=== PATIENT | female | born 1995 | race Caucasian/White ===

== ENCOUNTER 2021-02-05 12:38 | Inpatient (IN) | payer MEDICAID, OTHER ==
[~2021-02-05] VITALS: Ht 162.6 cm; Wt 90.7 kg
[2021-02-05] MEDS ORDERED: ALBUTEROL (12:43)
[2021-02-05] MEDS ORDERED: HYDROCODONE/ACETAMINOPHEN 5/325MG TABLET PO ONE (13:15)
[2021-02-05] MEDS ORDERED: MORPHINE SULFATE 4 MG/ML CPJ (NOT FOR IM USE) IV ONE (17:45)
[2021-02-05] MEDS ORDERED: ONDANSETRON HCL 4MG/2ML INJ IV ONE (17:45)
[2021-02-05 18:34] LABS: BASOPHILS % 0.3 % (0.0-2.0); EOSINOPHILS % 0.4 % (0.0-5.0); HEMATOCRIT. 35.4 % (36.0-48.0); HEMOGLOBIN. 12.3 g/dL (12.0-16.0); LYMPHOCYTES % 25.2 % (20.0-50.0); MEAN CORPUSCULAR HEMOGLOBIN 32.5 pg (28.0-32.0); MEAN CORPUSCULAR VOLUME 93.6 fL (81.0-99.0); MONOCYTES % 8.7 % (2.0-8.0); NEUTROPHILS % 65.4 % (40.0-76.0); PLATELET 306 x1000/uL (130-400); RED BLOOD CELL COUNT 3.79 mill/uL (4.2-5.4); RED CELL DISTRIBUTION WIDTH 16.4 % (11.6-14.6)
[2021-02-05 18:37] LABS: CHLORIDE 108 mEq/L (98-107)
[2021-02-05 18:41] LABS: HCG SCREEN NEGATIVE
[2021-02-05] MEDS ORDERED: ACETAMINOPHEN 325MG TABLET PO ONE (20:00)
[2021-02-05] MEDS ORDERED: NALOXONE HCL 0.4MG/ML VIAL IV PRN (23:30)
[2021-02-05] MEDS: MORPHINE SULFATE 2 MG/ML CPJ (NOT FOR IM USE) IV PRN (23:52)
[2021-02-06] MEDS: MORPHINE SULFATE 2 MG/ML CPJ (NOT FOR IM USE) IV PRN ×3 (04:11→19:58)
[2021-02-06 09:00] VITALS: BP 131/84
[2021-02-06] MEDS ORDERED: HYDR-4001 PO (09:15)
[2021-02-06] MEDS ORDERED: P20 MT (09:15)
[2021-02-06 09:30] VITALS: BP 131/84
[2021-02-06] MEDS ORDERED: ACETAMINOPHEN 325MG TABLET PO PRN (09:30)
[2021-02-06] MEDS ORDERED: ONDANSETRON HCL 4MG/2ML INJ IV PRN (09:30)
[2021-02-06] MEDS: HYDROCODONE/ACETAMINOPHEN 10/325MG TABLET PO PRN (10:37)
[2021-02-06 12:00] VITALS: BP 116/66
[2021-02-06 16:00] VITALS: BP 122/76
[2021-02-06] MEDS ORDERED: *PATIENT'S OWN MEDICATION STORAGE XX SCH (17:00)
[2021-02-06 20:00] VITALS: BP 151/50
[2021-02-07] VITALS: BP 100/60
[2021-02-07] MEDS: MORPHINE SULFATE 2 MG/ML CPJ (NOT FOR IM USE) IV PRN ×4 (01:57→20:02)
[2021-02-07 04:00] VITALS: BP 108/63
[2021-02-07] MEDS: HYDROCODONE/ACETAMINOPHEN 10/325MG TABLET PO PRN ×2 (04:35→12:56)
[2021-02-07 08:10] VITALS: BP 130/85
[2021-02-07 12:15] VITALS: BP 139/116
[2021-02-07 16:15] VITALS: BP 120/64
[2021-02-07 20:00] VITALS: BP 125/53
[2021-02-08] VITALS: BP 116/50
[2021-02-08] MEDS: MORPHINE SULFATE 2 MG/ML CPJ (NOT FOR IM USE) IV PRN ×5 (01:30→20:21)
[2021-02-08 04:00] VITALS: BP 102/49
[2021-02-08 08:00] VITALS: BP 102/49
[2021-02-08 12:00] VITALS: BP 127/74
[2021-02-08] MEDS: HYDROCODONE/ACETAMINOPHEN 10/325MG TABLET PO PRN ×2 (13:43→19:20)
[2021-02-08 16:00] VITALS: BP 117/67
[2021-02-08 20:45] VITALS: BP 122/68
[2021-02-09] VITALS: BP 105/65
[2021-02-09] MEDS: MORPHINE SULFATE 2 MG/ML CPJ (NOT FOR IM USE) IV PRN ×2 (00:43→08:21)
[2021-02-09 04:00] VITALS: BP 109/54
[2021-02-09 08:12] VITALS: BP 106/39
[2021-02-09 10:47] VITALS: BP 125/78
[2021-02-09 12:02] VITALS: BP 113/68
== END 2021-02-09 13:43 | disposition home or self-care (01) | DRG 351 ==
LOC: ER 12:38 → MICUSO 17:23 → 6WST 02-06 07:25
PROVIDERS: ADMIT Internal Medicine; ATTEND Internal Medicine
DX: S93.401A Sprain of unspecified ligament of right ankle, initial encounter (principal); G61.0 Guillain-Barre syndrome; E87.8 Other disorders of electrolyte and fluid balance, not elsewhere classified; E66.9 Obesity, unspecified; J45.909 Unspecified asthma, uncomplicated; F32.9 Major depressive disorder, single episode, unspecified; F41.9 Anxiety disorder, unspecified; G62.9 Polyneuropathy, unspecified; Z20.822 Contact with and (suspected) exposure to COVID-19; W18.39XA Other fall on same level, initial encounter; Y93.89 Activity, other specified; Y92.89 Other specified places as the place of occurrence of the external cause; Y99.8 Other external cause status; Z91.018 Allergy to other foods; Z68.34 Body mass index [BMI] 34.0-34.9, adult; Z79.899 Other long term (current) drug therapy
CPT/HCPCS: 36415; 73590; 73610; 80053; 84703; 85025; 85651; 86141; 87426; 93970; 97162; 99285; J2270; J2405